=== PATIENT | male | born 1985 | race Caucasian/White ===

== ENCOUNTER 2017-08-27 10:30 | Emergency (ER) | payer MEDICAID ==
--- NOTE | 2017-08-27 10:56 | ER Document Report ---
ED Medical Screen (RME) - General Chief Complaint: Blurred Vision Stated Complaint: BLURRED VISION Time Seen by Provider: 08/27/17 10:46 Notes: RAPID MEDICAL EVALUATION DISCLOSURE I have seen this patient as part of a Rapid Medical Evaluation and, if applicable, placed any initially appropriate orders. The patient will be seen and fully evaluated, including a full history and physical exam, by a provider ( in Main ED or Fast Track) when a room becomes available. 32-year-old male here with complaints of feeling sluggish, generalized weakness , dizziness, body aches, and blurry vision that started within minutes and with onset yesterday evening. He states that his vision was fine when he took his glasses off to get into the shower but after he got out of the shower (which is when the symptoms started) and put his glasses back on, his vision has continued to be blurry. He is here today because his blurry vision concerns him. He does have a headache in the back of his head, but states he has been ongoing for years and is unchanged. He denies any shortness of breath chest pain cough (has a smoker's cough) congestion runny nose vomiting diarrhea. He has been eating drinking urinating per usual. He denies history of diabetes. EXAM No apparent distress Clear to auscultation bilaterally Regular rhythm, minimally tachycardic TRAVEL OUTSIDE OF THE [place] IN LAST 30 DAYS: No - Related Data Allergies/Adverse Reactions: No Known Allergies Allergy (Verified 08/27/17 10:46) Past Medical History - Social History Chew tobacco use (# tins/day): No Frequency of alcohol use: Rare Drug Abuse: None Renal/ Medical History: Denies: Hx Peritoneal Dialysis Past Surgical History: Reports: Hx Orthopedic Surgery - LLE - Immunizations Hx Diphtheria, Pertussis, Tetanus Vaccination: No Physical Exam - Vital signs Vitals: Temp Pulse Resp BP Pulse Ox 98.8 F 107 H 20 119/78 97 08/27/17 10:39 08/27/17 10:39 08/27/17 10:39 08/27/17 10:39 08/27/17 10:39 Course - Vital Signs Vital signs: Temp Pulse Resp BP Pulse Ox 98.8 F 107 H 20 119/78 97 08/27/17 10:39 08/27/17 10:39 08/27/17 10:39 08/27/17 10:39 08/27/17 10:39
[2017-08-27 11:43] LABS: ABSOLUTE EOSINOPHILS # (AUTO) 0.3 10^3/uL (0.0-0.6); ABSOLUTE LYMPHOCYTES (AUTO) 2.2 10^3/uL (0.5-4.7); ABSOLUTE MONOCYTES (AUTO) 0.8 10^3/uL (0.1-1.4); ABSOLUTE NEUT (AUTO) 7.7 10^3/uL (1.7-8.2); BASOPHILS % (AUTO) 0.3 % (0-2); EOSINOPHILS % (AUTO) 2.8 % (0-6); HEMATOCRIT 50.5 % (37.9-51.0); HEMOGLOBIN 17.3 g/dL (13.5-17.0); LYMPHOCYTES % (AUTO) 19.7 % (13-45); MEAN CORPUSCULAR HGB CONC 34.3 g/dL (32.0-36.0); MEAN CORPUSCULAR VOLUME 91 fl (80-97); MONOCYTES % (AUTO) 7.6 % (3-13); PLATELET COUNT 276 10^3/uL (150-450); RED BLOOD COUNT 5.58 10^6/uL (4.35-5.55); RED CELL DISTRIBUTION WIDTH 13.2 % (11.5-14.0); SEGMENTED NEUTROPHILS % (AUTO) 69.6 % (42-78); TOTAL CELLS COUNTED % (AUTO) 100 %; WHITE BLOOD COUNT 11.1 10^3/uL (4.0-10.5)
[2017-08-27 11:53] LABS: URINE AMPHETAMINES SCREEN NEGATIVE; URINE BARBITURATES SCREEN NEGATIVE; URINE BENZODIAZEPINES SCREEN NEGATIVE; URINE COCAINE SCREEN NEGATIVE; URINE MARIJUANA (THC) SCREEN NEGATIVE; URINE METHADONE SCREEN NEGATIVE; URINE PHENCYCLIDINE SCREEN NEGATIVE
[2017-08-27 12:00] LABS: ANION GAP 16 (5-19); BLOOD UREA NITROGEN 17 mg/dL (7-20); CARBON DIOXIDE 27 mmol/L (22-30); CHLORIDE 105 mmol/L (98-107); GLUCOSE 96 mg/dL (75-110); PHOSPHORUS 3.5 mg/dL (2.5-4.5); POTASSIUM 4.6 mmol/L (3.6-5.0); SODIUM 147.8 mmol/L (137-145)
[2017-08-27] MEDS ORDERED: RINGERS SOLUTION,LACTATED 1,000 ML IV ONE (12:09)
--- NOTE | 2017-08-27 13:19 | ER Document Report ---
ED General - General Chief Complaint: Blurred Vision Stated Complaint: BLURRED VISION Time Seen by Provider: 08/27/17 10:46 TRAVEL OUTSIDE OF THE [place] IN LAST 30 DAYS: No - HPI Patient complains to provider of: Blurry vision myalgias Notes: Patient coming in for evaluation of blurry vision generalized weakness and myalgias. States ongoing for the last few days. Patient states that his current hydration method is with only Mountain Dew patient states he does not drink any water. Patient denies any trauma denies any fever chills nausea vomiting diarrhea. Upon my evaluation patient with significant other watching a movie on her cell phone on the bedside table. 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 Patient otherwise looks to be no obvious distress. - Related Data Allergies/Adverse Reactions: No Known Allergies Allergy (Verified 08/27/17 10:46) Home Medications: carvadopa-levadopa. esaloprim. prosem. benzatropine. busparone. abilify. nexium Past Medical History - Social History Smoking Status: Current Every Day Smoker Chew tobacco use (# tins/day): No Frequency of alcohol use: Rare Drug Abuse: None Family History: None Patient has suicidal ideation: No Patient has homicidal ideation: No Renal/ Medical History: Denies: Hx Peritoneal Dialysis Past Surgical History: Reports: Hx Orthopedic Surgery - LLE - Immunizations Hx Diphtheria, Pertussis, Tetanus Vaccination: No Review of Systems - Review of Systems Constitutional: Other - Weakness myalgias blurry vision EENT: No symptoms reported Cardiovascular: No symptoms reported Respiratory: No symptoms reported Gastrointestinal: No symptoms reported Genitourinary: No symptoms reported Male Genitourinary: No symptoms reported Musculoskeletal: No symptoms reported Skin: No symptoms reported Hematologic/Lymphatic: No symptoms reported Neurological/Psychological: No symptoms reported Physical Exam - Vital signs Vitals: Temp Pulse Resp BP Pulse Ox 98.8 F 107 H 20 119/78 97 08/27/17 10:39 08/27/17 10:39 08/27/17 10:39 08/27/17 10:39 08/27/17 10:39 Interpretation: Normal - General General appearance: Appears well, Alert - HEENT Head: Normocephalic, Atraumatic Eyes: Normal Pupils: PERRL Visual acuity- Right eye: 20/40 Visual acuity- Left eye: 20/40 Visual acuity- Both eyes: 20/30 Corrective lenses worn: Yes - Respiratory Respiratory status: No respiratory distress Chest status: Nontender Breath sounds: Normal Chest palpation: Normal - Cardiovascular Rhythm: Regular Heart sounds: Normal auscultation Murmur: No - Abdominal Inspection: Normal Distension: No distension Bowel sounds: Normal Tenderness: Nontender Organomegaly: No organomegaly - Back Back: Normal, Nontender - Extremities General upper extremity: Normal inspection, Nontender, Normal color, Normal ROM , Normal temperature General lower extremity: Normal inspection, Nontender, Normal color, Normal ROM , Normal temperature, Normal weight bearing. No: Lucas's sign - Neurological Neuro grossly intact: Yes Cognition: Normal Orientation: AAOx4 Marko Coma Scale Eye Opening: Spontaneous Marko Coma Scale Verbal: Oriented Marko Coma Scale Motor: Obeys Commands Marko Coma Scale Total: 15 Speech: Normal Motor strength normal: LUE, RUE, LLE, RLE Sensory: Normal - Psychological Associated symptoms: Normal affect, Normal mood - Skin Skin Temperature: Warm Skin Moisture: Dry Skin Color: Normal Course - Re-evaluation Re-evalutation: 08/27/17 18:56 Visual acuity was otherwise unremarkable. Patient's physical examination is also otherwise unremarkable. Patient does have hypernatremia more likely consistent with dehydration causing the patient's symptoms is that his hydration method is with Mountain Dew only. Encouraged patient to drink water otherwise patient looks nontoxic move concerning pathology patient will be discharged home. - Vital Signs Vital signs: Temp Pulse Resp BP Pulse Ox 97.9 F 92 16 116/71 94 08/27/17 13:29 08/27/17 13:29 08/27/17 13:29 08/27/17 13:29 08/27/17 13:29 - Laboratory Result Diagrams: 08/27/17 11:18 08/27/17 11:18 Laboratory results interpreted by me: 08/27/17 08/27/17 11:18 11:18 WBC 11.1 H RBC 5.58 H Hgb 17.3 H Sodium 147.8 H Discharge - Discharge Clinical Impression: Dehydration Condition: Good Disposition: HOME, SELF-CARE Instructions: Dehydration ([facility]) Additional Instructions: Your evaluation today shows signs of dehydration. More likely this is the reason for your blurry vision. Also this can cause some muscle aches and muscle cramping. I would recommend she drink plenty of water to stay hydrated return to ER symptoms worsen follow-up with your primary care physician. We recommend taking Tylenol Motrin for pain control. Referrals: LOC MACKAY, DO [Primary Care Provider] - Follow up as needed
[2017-08-27 13:33] VITALS: BP 116/71
== END 2017-08-27 13:50 | disposition home or self-care (01) ==
LOC: ER 10:30
DX: E86.0 Dehydration (principal); R42 Dizziness and giddiness; H53.8 Other visual disturbances; R53.1 Weakness; M79.1 Myalgia; R51 Headache; F17.200 Nicotine dependence, unspecified, uncomplicated
CPT/HCPCS: 99284; 96360; 36415; 82962; 83735; 84100; 85025; 80048; 80307; J7120